=== PATIENT | female | born 1980 | race Caucasian/White ===

== ENCOUNTER → 2018-02-10 08:30 | Outpatient (CLI) | payer OTHER, SELFPAY ==
[2018-02-10 12:16] LABS: ALB/GLOB Ratio 0.8 RATIO (0.9-2.4); AST(SGOT) 15 U/L (15-37); Alanine Aminotransfer ALT/SGPT 14 U/L (13-56); Albumin, Serum 3.3 g/dL (3.2-5.0); Alkaline Phosphatase 90 U/L (45-117); Anion Gap 8 (5-15); BUN 12 mg/dL (7-18); BUN/Creat Ratio 14.3 RATIO (10-20); Calcium,Total 8.7 mg/dL (8.5-10.1); Chloride 105 mmol/L (98-107); Cholesterol 195 mg/dL (200); Creatinine, Serum 0.84 mg/dL (0.55-1.02); EST Glomerular Filtration Rate 81 mL/min (>60); Est Glom Filt Rate - Afr Amer 98 mL/min (>60); Globulin 4.1 g/dL (2.2-4.2); Glucose 81 mg/dL (74-106); High Density Lipoprotein 91 mg/dL; Protein, Total 7.4 g/dL (6.4-8.2); Sodium Level 139 mmol/L (136-145); T4 Free Direct 0.85 ng/dL (0.76-1.46); Thyroid Stim Hormone (TSH) 1.32 uIU/mL (0.358-3.74); Triglycerides 107 mg/dL; Very Low Density Lipoprotein 21 mg/dL (5-40)
[2018-02-11 09:25] LABS: Insulin 13.3 mU/L (2.6-37.6)
[2018-02-11 15:47] LABS: Adrenocorticotropic Hormone 7.1 pg/mL (7.2-63.3)
== END ==
PROVIDERS: Family Provider Family Medicine; PCP Family Medicine; Visit Provider Family Medicine
DX: R63.5 Abnormal weight gain (principal); R53.83 Other fatigue; G43.909 Migraine, unspecified, not intractable, without status migrainosus
CPT/HCPCS: 36415; 80053; 80061; 82024; 82533; 83525; 84439; 84443

== ENCOUNTER → 2018-02-16 08:06 | Outpatient (CLI) | payer OTHER, SELFPAY | PROVIDERS: Family Provider Family Medicine; PCP Family Medicine; Visit Provider Family Medicine | DX: E27.0 Other adrenocortical overactivity (principal) | CPT/HCPCS: 36415; 82533 ==

== ENCOUNTER → 2019-12-15 10:18 | Outpatient (CLI) | payer MEDICAID, SELFPAY ==
[2019-12-15 12:43] LABS: Erythrocyte Sedimentation Rate 23 mm/hr (0-20)
[2019-12-15 12:46] LABS: Absolute Lymphocyte Count 2.65 X10^3/uL (0.83-4.51); Absolute Neutrophil Count 4.4 X10^3/uL (2.0-7.7); Basophil# 0.05 X10^3/uL; Basophil% 0.6 % (0-1); Eosinophil# 0.17 X10^3/uL; Eosinophils% 2.2 % (0-5); Hematocrit 43.4 % (37-47); Hemoglobin 13.9 g/dL (12.0-15.0); Lymphocyte # 2.65 X10^3/ul (4.0); Lymphocyte % 34.3 % (19-41); Mean Corpuscular Hgb 29.3 pg (27.0-32.0); Mean Corpuscular Volume 91.4 fL (81-99); Monocyte# 0.45 X10^3/uL; Monocyte% 5.8 % (0-10); NRBC Flagged by Analyzer 0 % (0-5); Platelet Count 343 K/mm3 (150-450); RBC Distribution Width CV 13.5 % (11.6-14.6); Red Blood Count 4.75 M/mm3 (4.2-5.4); White Blood Count 7.7 K/mm3 (4.4-11.0)
[2019-12-15 12:55] LABS: CRP 9.41 mg/L (0.0-3.0)
[2019-12-16 14:52] LABS: ANTINUCLEAR ANTIBODIES DIRECT Negative (Negative)
[2019-12-16 17:09] LABS: CMV Acute Antibody IgM < 30.0 AU/mL (0.0-29.9); CMV Antibody IgG 0.95 U/mL (0.00-0.59); EBV Acute VCA IgM < 36.0 U/mL (0.0-35.9); EBV Early Antigen IgG <9.0 U/mL (0.0-8.9); EBV Nuclear Antigen IgG 60.3 U/mL (0.0-17.9)
== END ==
PROVIDERS: PCP Family Medicine; Visit Provider Family Medicine
DX: R53.83 Other fatigue (principal); R59.0 Localized enlarged lymph nodes
CPT/HCPCS: 36415; 85025; 85652; 86038; 86140; 86225; 86235; 86644; 86645; 86663; 86664; 86665

== ENCOUNTER → 2019-12-29 10:56 | Outpatient (CLI) | payer MEDICAID, SELFPAY ==
--- NOTE | 2019-12-29 11:05 | MRI_ITS ---
STUDY: MRI BRAIN WITH AND WITHOUT CONTRAST REASON FOR EXAM: Female, 39 years old. MS, INCREASED MIGRAINES, NERVE PAIN TECHNIQUE: Standardized multiplanar fat and water weighted pulse sequences were obtained. IV Dotarem 17ml was administered for the contrast portion of the examination. COMPARISON: None. FINDINGS: Normal size of the ventricles and extra-axial spaces for the patient''s age. There are a limited number of small white matter hyperintensities, distributed throughout the deep white matter tracts of the cerebral hemispheres, nonspecific. Differential considerations include but limited not limited to chronic microvascular, demyelination, Lyme disease and migraine vasculopathy. Normal bilateral basal ganglia. Normal thalami. There is no extra-axial fluid accumulation. Normal flow voids within the major intracranial circulation suggesting patency by spin echo criteria. Normal venous enhancement. There is no enhancing intra-axial or extra-axial abnormality. Normal sella turcica, pituitary gland, infundibular stalk, optic chiasm and hypothalamus. Normal tectal plate and pineal gland. Normal midbrain, kang and medulla. Normal cerebellum. Normal basal cisterns. Normal bilateral temporal bones. MRI/Brain W/WO Contrast IMPRESSION: No acute intracranial abnormality or masses. Nonspecific minimal white matter hyperintensities. Electronically Signed: Perico Andrews MD at 10:31 EST Tel , Service support ,
== END ==
PROVIDERS: PCP Family Medicine; Referring Provider Family Medicine; Visit Provider Family Medicine
DX: H53.2 Diplopia (principal); R53.83 Other fatigue; M62.838 Other muscle spasm; R35.0 Frequency of micturition; M79.2 Neuralgia and neuritis, unspecified
CPT/HCPCS: 70553; A9575

== ENCOUNTER → 2020-01-12 08:10 | Outpatient (CLI) | payer MEDICAID, SELFPAY | PROVIDERS: PCP Family Medicine; Visit Provider Family Medicine | DX: R53.83 Other fatigue (principal); A69.20 Lyme disease, unspecified; R59.0 Localized enlarged lymph nodes | CPT/HCPCS: 36415 ==

== ENCOUNTER 2020-01-29 15:52 | Emergency (ER) | payer MEDICAID, SELFPAY ==
[2020-01-29 15:53] VITALS: BP 156/96; PULSE 83; PULSE 91; RESP 17; TEMP 36.1; O2SAT 98; BMI 34.6
--- NOTE | 2020-01-29 16:09 | ED.VISSUMM ---
- ER Visit Summary Date of Service: 01/29/20 Chief Complaint: Right arm pain History of Present Illness: The patient is a 39 F who has right arm pain. Is been ongoing for 2 weeks. She noticed some red streaks on her proximal forearm. Nothing really makes his pain better or worse. She denies fevers. No history of DVT. She had an MRI with contrast on December 29 and was concerned about the contrast going through but the symptoms did not start until 2 weeks after this. Physical Examination: Vital signs are reviewed. Right arm exam reveals some tenderness on the proximal forearm on the ulnar side right over the vein. No swelling. Distal pulses are 2+ and equal. Her arm is warm. No cyanosis. Test Results: None performed Emergency Department Course and Treatment: I feel that this is likely consistent with a superficial thrombophlebitis. I will place the patient on Keflex for this. She will do warm compresses. I will write her for an outpatient ultrasound to be done tomorrow as they are not here currently. Treatment Plan: [] Disposition: Discharge Impression: Superficial thrombophlebitis This note was generated with [email or web address] dictation software. It may contain incorrect words, spelling, and punctuation that were not noted in review of the chart prior to signing ED Disposition - Plan for ED Patient: Disposition: Home or Assisted Living Instructions: THROMBOPHLEBITIS, Superficial Prescriptions: Cephalexin [Keflex] 500 mg PO Q12 #10 cap Transmission Status: Pending to [facility]/pharmacy #[id number] Referrals: Misbah Shaw DO [Primary Care Provider] -
[2020-01-29] MEDS: Cephalexin 250 MG Capsule 500 MG PO (16:19)
== END 2020-01-29 16:20 | disposition home or self-care (01) ==
PROVIDERS: Emergency Provider Emergency Medicine; PCP Family Medicine
DX: I80.8 Phlebitis and thrombophlebitis of other sites (principal)
CPT/HCPCS: 99283

== ENCOUNTER → 2020-01-30 11:20 | Outpatient (CLI) | payer MEDICAID, SELFPAY ==
[2020-01-29 15:53] VITALS: BMI 34.6
--- NOTE | 2020-01-30 11:42 | VDUE_ITS ---
Reason For Study: Pain Right Proximal Right jugular vein is spontaneous, widely patent, phasic, with no intraluminal echogenicity noted. Right subclavian vein is spontaneous, widely patent, phasic, with no intraluminal echogenicity noted. Right Lower Arm Right radial vein is compressible. Right ulnar vein is compressible. Right Arm Right axillary vein is spontaneous, patent, phasic, competent, compressible and demonstrates augmentation. Right brachial vein is compressible. Right cephalic vein is compressible. Acute superficial vein thrombosis is noted in the right basilic vein from mid forearm to juction with axillary vein, not extending in to axillary vein. Acute superficial vein thrombosis is notedin the median cubital vein, not extending in the cephalic vein. Patient Safety Pt seen in ED 01/29/2020, took pt back down to ED for treatment on 01/30/2020. Interpretation Summary Deep veins of the right upper extremity are patent and compressible segmentally. There is no evidence of deep vein thrombosis. Acute superficial thrombophlebitis is noted in the right basilic vein from the mid-forearm to its junction with the axillary vein, but not extending into the axillary vein. Acute superficial thrombophlebitis is also noted in the right median cubital vein. The right cephalic vein is patent and compressible. Ordering Physician: Reji Jeong Referring Physician: Misbah Shaw Performed By: Renu Goodman RVT ?
== END ==
PROVIDERS: PCP Family Medicine; Visit Provider Emergency Medicine
DX: M79.601 Pain in right arm (principal)
CPT/HCPCS: 93971

== ENCOUNTER 2020-01-30 12:00 | Emergency (ER) | payer MEDICAID, SELFPAY ==
[2020-01-29 15:53] VITALS: BMI 34.6
[2020-01-30 12:01] VITALS: BP 151/96; PULSE 90; RESP 18; TEMP 36.6; O2SAT 98; BMI 34.3
--- NOTE | 2020-01-30 12:11 | ED.VIS.GEN ---
History of Present Illness Chief Complaint: Upper Extremity Injury Detail of Chief Complaint: Venous duplex reveals superficial phlebitis median cubital vein and not ext Informant: Patient Onset: Days Context: Sudden Onset Timing: Continuous Quality: Pain Location: Dorsal ulnar mid to proximal right forearm Current Severity: Mild Maximum Severity: Moderate Worsened by: Pressure Relieved by: Rest Associated Symptoms: None Narrative: Records from yesterday were read and reviewed. Patient presents from vascular lab and revealed a superficial clot. Patient's IV site was right antecubital fossa. She denies fever, chills night sweats. She denies chest pain or shortness of breath. She denies arm pain. She complains of pain and the proximal ulnar right forearm only. Prior similar symptoms: Yes Recent Illness/Hospitalization: Yes - Past Medical History (1) No significant past medical history Status: Acute Past Medical History - Allergies and Home Meds Allergies/Adverse Reactions: Allergies Penicillins Allergy (Verified 01/30/20 12:04) Unknown Sulfa (Sulfonamide Antibiotics) Allergy (Verified 01/30/20 12:04) Rash Primary Care Physician: Misbah Shaw DO [Primary Care Provider] - Prior records reviewed: Yes Surgical History: noncontributory Lives: Alone Smoking Status: Former smoker Drugs: None Review of Systems General: Denies: Chills, Fever, Malaise, Subjective, Sweats, Weight loss Neurological: Denies: Weakness, Parasthesia, Numbness Hematologic: Denies: Easy bruising, Easy bleeding Allergy: Denies: Uticaria, Swelling of the mouth, Swelling of the tongue Physical Exam Vital Signs/Narrative: Vital Signs Temp Pulse Resp BP Pulse Ox 01/30/20 12:01 97.9 F 90 18 151/96 H 98 Inital Vital Signs reviewed: Yes General: Well nourished, Well developed, Obese, No Acute Distress Head: Normocephalic, Atraumatic Eyes: Perrl, EOMI. Negative for: Pale conjunctiva, Scleral icterus Cardiovascular: Regular rate, Regular rhythm Respiratory: No distress Extremities: No edema, Tenderness, - - There is tenderness along the ulnar proximal right forearm. There is a palpable cord consistent with superficial Vitas. This was confirmed by venous duplex study performed earlier this morning. There is no epitrochlear axillary lymphadenopathy. There is no induration, lymphangitis. Negative for: Nontender Skin: Normal color, No rash Neurological: Alert, Oriented x3, Cranial nerves II-XII grossly intact, Normal Strength, Normal Sensation Psychological: Normal affect, Normal Mood Diagnostic/Tx/Re-eval - Medical Decision Making Patient presents with venous duplex study that reveals a superficial phlebitis. There is no evidence or concern for infection. Will discharge with appropriate home-going instructions. ED Disposition - Plan for ED Patient: Disposition: Home or Assisted Living Diagnosis: Superficial thrombophlebitis of right upper extremity Instructions: THROMBOPHLEBITIS, Superficial Referrals: Misbah Shaw DO [Primary Care Provider] - 10-14 Days if not better
== END 2020-01-30 12:26 | disposition home or self-care (01) ==
PROVIDERS: Emergency Provider Emergency Medicine; PCP Family Medicine
DX: I80.8 Phlebitis and thrombophlebitis of other sites (principal); E66.9 Obesity, unspecified; Z87.891 Personal history of nicotine dependence
CPT/HCPCS: 93971; 99282

== ENCOUNTER → 2022-04-22 | Outpatient (CLI) | payer BC, MEDICAID, SELFPAY ==
--- NOTE | 2022-04-22 | EMB_PTH ---
PATIENT: KAITLIN OVERTON LOC: [facility] U#:[id number] AGE/SX: 42/F ROOM: RE04/22/[address]: JUSTIN Ahn : 1980 BED: DIS: 04/22/2022 SPEC #: [id number] RECD: 04/22/22 16:24 STATUS: MAGDA GARCIA #: [id number] MAMIE: 04/22/22 00:[address]: Mari Thurston NP DEPT: SURGICAL PATHOLOGY RECD BY: Kina Wells ENTERED: 04/23/22 11:53 SP TYPE: ENDOM BX/C CONCHITA DR: Dr. Misbah Shaw DO Tissues: Endometrium, NOS Procedures: Surgery Specimen Level IV HEADER OPERATION: Endometrial biopsy PRE-OP DIAGNOSIS: Abnormal uterine bleeding TISSUE SUBMITTED: Endometrial biopsy MICROSCOPIC DIAGNOSIS Endometrial biopsy: Proliferative endometrium. SJ:fanta 04/24/2022 MICROSCOPIC DESCRIPTION Slides are reviewed. GROSS DESCRIPTION Received is one container labeled with the patient's name and not further designated. The specimen consists of multiple fragments of carolina-pink hemorrhagic soft tissue mixed with mucoid tissue that in aggregate measure 2.5 x 0.5 x 0.1 cm. The specimen is totally submitted in one cassette. / SJ:rg 04/23/2022 TC:4 CPT: 91815
[2022-04-25 17:23] LABS: HPV APTIMA, High Risk Negative (Negative)
== END | disposition home or self-care (01) ==
LOC: LABSPEC 16:28
PROVIDERS: PCP Family Medicine; Referring Provider Nurse Practitioner Women's Health; Visit Provider Nurse Practitioner Women's Health
DX: N93.9 Abnormal uterine and vaginal bleeding, unspecified (principal)
CPT/HCPCS: 87624; 88175; 88305; G0145

== ENCOUNTER → 2022-05-06 | Outpatient (CLI) | payer BC, SELFPAY ==
--- NOTE | 2022-05-06 08:20 | BI_ITS ---
MAMMOGRAPHY - BILATERAL SCREENING REASON FOR EXAM: Female, 42 years old. Routine annual screening examination. PERTINENT HISTORY: Non-contributory. TECHNIQUE: Digital bilateral breast fatemeh (3D mammographic acquisition) in the CC and MLO projections. 2-D mediolateral oblique (MLO) and craniocaudad (CC) views of both breasts were obtained. CAD: Full Field Digital Mammography with Computer Added Detection was performed. COMPARISON: None. Baseline examination. FINDINGS: Breast Composition: There are scattered areas of fibroglandular density. There are no dominant masses or suspicious calcifications. Small benign-appearing bilateral axillary lymph nodes. No other significant abnormalities are identified. BI/SCRN MAMM (CAD)W/FATEMEH BILAT IMPRESSION: Negative screening mammogram. Yearly followup mammogram recommended. (A) ASSESSMENT CATEGORY: BIRADS Category 2: Benign. A letter regarding these results will be sent to the patient by the facility within 30 days. Approximately 10% of breast cancers are not detected by mammography. A normal mammogram should not delay biopsy of a clinically suspicious abnormality. [id number] Electronically Signed: Tristin Ortega MD at 9:08 EDT ,
== END | disposition home or self-care (01) ==
LOC: OPBI 08:19
PROVIDERS: PCP Family Medicine; Visit Provider Nurse Practitioner Women's Health
DX: Z12.31 Encounter for screening mammogram for malignant neoplasm of breast (principal)
CPT/HCPCS: 77063; 77067

== ENCOUNTER → 2022-05-20 | Outpatient (CLI) | payer BC, MEDICAID, SELFPAY ==
--- NOTE | 2022-05-20 10:47 | US_ITS ---
STUDY: ULTRASOUND OF THE FEMALE PELVIS - COMPLETE REASON FOR EXAM: Female, 42 years old. AUB LMP: 03/12/2022. TECHNIQUE: Transabdominal and Transvaginal TECHNICAL QUALITY: Adequate. COMPARISON: None. FINDINGS: The uterus is anteverted and is in a midline position. The uterus measures 8.9 cm x 5.3 cm x 4 cm. There is a Nabothian cyst of the cervix. The endometrium measures 8.8 mm in thickness, and is hyperechoic. A small cystic structure is seen adjacent to the endometrium. This may represent adenomyosis. There is no demonstrated myometrial mass. I.U.D. - The patient does not have an I.U.D. The right ovary is visualized. The right ovary measures 2.1 cm x 2 cm x 1.2 cm. There is no right ovarian cyst or ovarian mass. There is no visualized right adnexal mass or complex lesion. There is normal arterial and normal venous vascularity. The left ovary is visualized. The left ovary measures 1.7 cm x 1.5 cm x 2 cm. There is no left ovarian cyst or ovarian mass. There is no visualized left adnexal mass or complex lesion. There is normal arterial and normal venous vascularity. There is no fluid in the cul-de-sac. The pre void volume of the bladder was 670 ml. US/Transvaginal Non- IMPRESSION: Small cystic changes deep in the endometrium. This may represent adenomyosis. Electronically Signed: Tristin Ortega MD at 15:46 EDT ,
--- NOTE | 2022-05-20 10:47 | US_ITS ---
STUDY: ULTRASOUND OF THE FEMALE PELVIS - COMPLETE REASON FOR EXAM: Female, 42 years old. AUB LMP: 03/12/2022. TECHNIQUE: Transabdominal and Transvaginal TECHNICAL QUALITY: Adequate. COMPARISON: None. FINDINGS: The uterus is anteverted and is in a midline position. The uterus measures 8.9 cm x 5.3 cm x 4 cm. There is a Nabothian cyst of the cervix. The endometrium measures 8.8 mm in thickness, and is hyperechoic. A small cystic structure is seen adjacent to the endometrium. This may represent adenomyosis. There is no demonstrated myometrial mass. I.U.D. - The patient does not have an I.U.D. The right ovary is visualized. The right ovary measures 2.1 cm x 2 cm x 1.2 cm. There is no right ovarian cyst or ovarian mass. There is no visualized right adnexal mass or complex lesion. There is normal arterial and normal venous vascularity. The left ovary is visualized. The left ovary measures 1.7 cm x 1.5 cm x 2 cm. There is no left ovarian cyst or ovarian mass. There is no visualized left adnexal mass or complex lesion. There is normal arterial and normal venous vascularity. There is no fluid in the cul-de-sac. The pre void volume of the bladder was 670 ml. US/Pelvic (Non ) IMPRESSION: Small cystic changes deep in the endometrium. This may represent adenomyosis. Electronically Signed: Tristin Ortega MD at 15:46 EDT ,
== END | disposition home or self-care (01) ==
LOC: OPUS 10:30 → US 10:47
PROVIDERS: PCP Family Medicine; Referring Provider Nurse Practitioner Women's Health; Visit Provider Nurse Practitioner Women's Health
DX: N93.9 Abnormal uterine and vaginal bleeding, unspecified (principal)
CPT/HCPCS: 76830; 76856

== ENCOUNTER 2022-06-11 08:52 | Day surgery (SDC) | payer BC, MEDICAID, SELFPAY ==
[2022-06-07 13:02] LABS: Hematocrit 43.5 % (37-47); Hemoglobin 14.5 g/dL (12.0-15.0); Mean Corp Hgb Conc 33.3 g/dL (32-36); Mean Corpuscular Hgb 30.3 pg (27.0-32.0); Mean Corpuscular Volume 90.8 fL (81-99); Mean Platelet Vol. 10.1 fl (6.2-12.0); Platelet Count 260 K/mm3 (150-450); RBC Distribution Width CV 13.2 % (11.6-14.6); RBC Distribution Width SD 44.4 fl (35.1-43.9); Red Blood Count 4.79 M/mm3 (4.2-5.4); White Blood Count 9.8 K/mm3 (4.4-11.0)
--- NOTE | 2022-06-10 10:55 | PCM.HP.BLA ---
History and Physical Date of Admission: 06/11/22 [facility] [address] [place], [place] [address] OFFICE VISIT Date of Service:? 05/30/22 MR#: [id number] Acct: [id number] Name:KAITLIN ROSADO Rep #: [id number] : 1980 ? ? Provider: Dr. Gabriela Alicea, DO Age/Sex:? 42/F ? ? Location: [facility] [place] Status: Signed Intake Vital Signs ? 05/30/2214:25 05/30/2214:28 Height 5 ft 3 in 5 ft 3 in Weight: 187 lb ? BMI 33.1 ? BP 122/80 H ? Intake Visit Reasons:?D&C Allergies Penicillins Allergy (Verified 05/30/22 14:24) UnknownSulfa (Sulfonamide Antibiotics) Allergy (Verified 05/30/22 14:24) Rash Medications sertraline 100 mg tablet (Zoloft) 100 mg PO QDAY 05/12/18 [History Confirmed 05/30/22] Is last menstrual period known: Yes Last Menstral Period: 03/11/22 Nurse's Note: pt has had abdominal discomfort since [facility] Medical History? Anxiety Lyme disease Surgical History? Bunion Dermoid cyst Social History? adopted:? Yes household members:? family housing:? house number of children:? 1 current occupational status:? 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 No pets and animals:? Yes Smoking Status:? Former smoker second hand exposure:? No alcohol intake:? never substance use type:? does not use seatbelt use:? always do you feel safe at home:? Yes additional social history:? Boyfriend- Isacc [facility] D&C Details: KAITLIN OVERTON is a 42 year old (Vaginal delivery) who presents for discussion about surgery. ultrasound shows an 8.9 x 5 x 4 cm uterus and a small cystic area in the myometrium consistent with adenomyosis. This was initially thought by Mari Thurston as an endometrial polyp. Upon closer look of the images, it appears to be within the muscle. The patient has complaints of generalized uterine cramping, which is consistent with adenomyosis. She has shortening of the intervals of her cycles more recently. She also states that she is not interested in child bearing and would be more interested in a hysterectomy. Female Reproductive History Last Menstral Period: 03/11/22 Pregancy History ? ? ? 1 ? Elective abortions ? Hx Para ? ? ? 1 ? Spontaneous abortions ? Hx # Term Pregnancies ? Ectopic pregnancies ? Hx # Pregnancies ? Multiple births ? # of living children ? ? ? 1 Past Pregnancies Del. Date Name GA/Weeks Outcome Route Bth Weight Infant Gen Labor Lgth Anesthesia Del Locatn Provider FOB 04/02/06 Beth ? ROS Const ROS Unobtainable: All systems reviewed & are unremarkable except as noted in H Resp Resp: Reports system reviewed and no additional complaints, except as documented; Denies cough GI GI: Reports as per HPI Psych Psych: Reports system reviewed and no additional complaints, except as documented Exam Const General: cooperative, healthy appearing, comfortable and no acute distress Resp Effort & Inspection: normal respiratory effort Skin General: no rashes or lesions noted Psych Appearance: grossly normal Speech and Movement: speech and movement normal Coding Level of Care Code Off vis,est,level 5 Diagnoses Adenomyosis? N80.0 Abnormal uterine bleeding (AUB)? N93.9 Climacteric? N95.1 Assessment and Plan Assessment and Plan (1) Adenomyosis: ?Status:?Acute (2) Abnormal uterine bleeding (AUB): ?Status:?Acute ?Comment: EMB, US (3) Climacteric: ?Status:?Acute Plan After discussing the patient's diagnosis and treatment plan options, patient wishes to proceed with surgical management. She has decided to proceed with a total vaginal hysterectomy. ? I have discussed with the patient the risks, benefits, and alternatives of the procedure which include but are not limited to risks of anesthesia, bleeding, infection, possible damage to bowel, bladder, or surrounding vasculature which could lead to additional surgery to evaluate any complications.? Patient agrees to procedure and wishes to proceed.? ACOG/uptodate references given for additional information regarding procedure.? UPDATE- I have seen the patient and performed any clinically relevant updates to the history and physical exam. Gabriela Alicea, DO
[2022-06-11] VITALS (9 sets, daily range): BP systolic 120–135; BP diastolic 66–86; PULSE 68–93; RESP 12–18; TEMP 36.3–36.4; O2SAT 16–100; BMI 32.9
--- NOTE | 2022-06-11 | HYST_PTH ---
PATIENT: KAITLIN OVERTON LOC: [facility] [place] U#:[id number] AGE/SX: 42/F ROOM: RE06/11/[address]: Dr. Gabriela Alicea DO : 1980 BED: DIS: 06/11/2022 SPEC #: [id number] RECD: 06/11/22 13:34 STATUS: MAGDA GARCIA #: [id number] MAMIE: 06/11/22 00:[address]: Gabriela Alicea DEPT: SURGICAL PATHOLOGY RECD BY: Thomas Brooke ENTERED: 06/11/22 13:34 SP TYPE: HYSTERECT OTHR DR: Dr. Misbah Shaw, DO Tissues: Uterus, NOS Procedures: Surgery Specimen Level V HEADER OPERATION: ERAS, vaginal hysterectomy PRE-OP DIAGNOSIS: Adenomyosis, abnormal uterine bleeding TISSUE SUBMITTED: Cervix and uterus MICROSCOPIC DIAGNOSIS Uterus, hysterectomy: Cervix ? nabothian cysts and mild chronic inflammation. Endometrium ? simple cystic hyperplasia without atypia. Myometrium ? adenomyosis. AM:fanta 06/12/2022 MICROSCOPIC DESCRIPTION Slides are reviewed. GROSS DESCRIPTION Received in fixative is one container labeled with the patient's name and designated cervix and uterus. The specimen consists of a hysterectomy specimen consisting of uterus with cervix weighing 120 gm and?measuring 10 x 6 x 4.5 cm. The serosal surface is carolina, glistening. The ectocervical mucosa is unremarkable. The external os is oval and patulous in contour. The endocervical canal measures 3.5 cm in length. The endocervical mucosa is carolina, glistening and unremarkable. The triangular endometrial cavity measures 4 cm in length and up to 2.5 cm in width. The endometrium is carolina, glistening without any mass lesion and measures up to 0.2 cm in thickness. The uterine wall reveals focally trabeculated cut surfaces and punctate hemorrhage suspicious for adenomyosis. No mass lesion is identified. The uterine wall measures up to 3 cm in thickness. Shut Off Worker sections are submitted in six cassettes as follows: 1 - anterior cervix, 2 - posterior cervix, 3 & 4 - anterior uterine wall, 5 & 6 - posterior uterine wall. / SJ:fanta 06/11/2022 TC:5 CPT: 47455
[2022-06-11 09:15] LABS: Internal QC Validated? YES +Cl - CLEAR BKGD; Pregnancy, Urine Negative Negative
[2022-06-11] MEDS: Lactated Ringers 1,000 ML 40 ML IV ×2 (09:17→13:09)
[2022-06-11] MEDS: Celecoxib 200 MG Capsule 400 MG PO (09:18)
[2022-06-11] MEDS: Acetaminophen 500 MG Tablet 1000 MG PO (09:18)
[2022-06-11] MEDS: Gabapentin 600 MG Tablet PO (09:18)
[2022-06-11 10:00] LABS: Bedside Glucose 90 mg/dL (74-106)
--- NOTE | 2022-06-11 10:32 | DCINST_ITS ---
Discharge Instructions Diet Discharge Diet: No restrictions Activity Discharge Activity: Return to Normal Activity, May Not Drive (while taking narcotic pain medications.) and May Shower May resume sexual activity in: 6-8 weeks Dressing / Incision Call your doctor if your incision/area has: Continuous Slow Oozing, Sudden Increased Bleeding, Increased Pain/ Swelling, Increased Redness and Foul Smelling Discharge Call your doctor if you observe: Fever of 101 or Higher, Inability to urinate, Inability to have a bowel movement and Using more than 1 pad per hour Follow Up Care Please Follow Up With: Gabriela Alicea DO Test Results: Test results from this visit will be discussed in further detail at your follow- up appointment, if applicable. Discharge Plan Admission Primary Reason for Your Visit: hysterectomy Attending Provider: Gabriela Alicea Primary Care Provider: Misbah Shaw Discharge Orders/Prescriptions Prescriptions: New ibuprofen 600 mg tablet 600 mg PO Q6H PRN (Reason: pain) 7 Days Qty: 28 0RF Rx Instructions: one tab every 6 hrs as needed for mild to moderate pain oxycodone-acetaminophen [Percocet] 5-325 mg tablet 1 tab PO Q4H PRN (Reason: pain) 7 Days Qty: 30 0RF Continued sertraline [Zoloft] 100 mg tablet 100 mg PO QDAY Referrals / Follow Up: Misbah Shaw DO [Primary Care Provider] - Disposition Disposition (needs filled in before D/C Order can be placed): Home, Self Care
[2022-06-11] MEDS: Cefazolin 2 GM in 0.9% Normal Saline 100 ML IV (11:51)
[2022-06-11] MEDS: Lidocaine 1% /Epi 1:100 (20ml) 20 ML Vial (11:55)
--- NOTE | 2022-06-11 13:00 | OP.PCM_ITS ---
Operative Report Date of Procedure: 06/11/22 Pre-operative diagnosis: menorrhagia, adenomyosis on ultrasound Post-operative diagnosis: menorrhagia, adenomyosis on ultrasound Surgeon: Dr. Gabriela Alicea DO Senior Mechanical Engineer: DIANA Damico surgery: Total vaginal hysterectomy EBL: 150cc urine output: 800cc Anesthesia: General endotracheal details of the procedure: Patient was taken to the operating room and was placed under general anesthesia was prepped and draped in normal sterile fashion in the dorsal lithotomy posit ion. Preoperative antibiotics and SCDs and Fisher catheter was placed inside the bladder. Weighted speculum was placed in the vagina and the anterior and posterior lip of the cervix was grasped with 2 Lyric clamps and circumferentially injected with dilute vasopressin. A circumferential incision was made with a scalpel and the posterior cul-de-sac was entered into sharply and a longneck speculum was placed. The anterior cul-de-sac was also dissected down and entered into sharply and the uterosacral ligaments were clamped cut and suture ligated bilaterally followed by the cardinal ligaments which were Clamped cut and suture ligated bilaterally with 0 vicryl. The uterus serially descended and progressive bites were taken bilaterally up to the level of the utero- ovarian ligament bilaterally which was clamped transected and double ligated with Vicryl free tie. Excellent hemostasis was noted. Posterior peritoneum was reapproximated with 2-0 Vicryl and a modified Clark stitch was placed through the posterior vaginal cuff and bilateral uterosacral ligaments across the posterior cul-de-sac skimming along to provide apical support to the vagina. The vagina was closed with [id number] 0 Vicryl pop offs including the posterior and anterior peritoneum in the reapproximation. Excellent hemostasis was noted. All instruments removed from the vagina clear urine was noted at the end of the procedure and patient was awoken and taken recovery in stable condition. Multi Select Codes Urinary/Genital Urinary/Genital CPT Codes: 46528 TVH <250 gr uterus
[2022-06-11 13:41] LABS: Bedside Glucose 86 mg/dL (74-106)
[2022-06-11] MEDS: Ondansetron 4 MG/2 ML Vial IM (14:09)
[2022-06-11] MEDS: HYDROcodone Bitartrate/Apap 5/325 Tablet PO (14:22)
[2022-06-11] MEDS: Morphine 4 MG/ML Syringe IV (15:47)
== END 2022-06-11 17:14 | disposition home or self-care (01) ==
LOC: SDC 08:53 → AC 08:53
PROVIDERS: Anesthesiology; PCP Family Medicine; Referring Provider Obstetrics & Gynecology; Visit Provider Obstetrics & Gynecology
PROC: (CPT 58260; principal; 2022-06-11 10:10)
DX: N85.01 Benign endometrial hyperplasia (principal); F41.9 Anxiety disorder, unspecified; A69.20 Lyme disease, unspecified; Z87.891 Personal history of nicotine dependence; Z79.899 Other long term (current) drug therapy
CPT/HCPCS: 58260; 00944; 36415; 81025; 82962; 83735; 85027; 86850; 86900; 86901; 88307; J7120; J2405; J3475

== ENCOUNTER → 2024-01-26 | Outpatient (CLI) | payer BC, MEDICAID, SELFPAY ==
[2024-01-26 09:49] LABS: Absolute Lymphocyte Count 2.63 X10^3/uL (0.83-4.51); Absolute Neutrophil Count 4.6 X10^3/uL (2.0-7.7); Basophil# 0.06 X10^3/uL; Basophil% 0.8 % (0-1); Eosinophil# 0.09 X10^3/uL; Eosinophils% 1.2 % (0-5); Hematocrit 43.3 % (37-47); Hemoglobin 14.1 g/dL (12.0-15.0); Lymphocyte # 2.63 X10^3/ul (0.83-4.51); Lymphocyte % 33.7 % (19-41); Mean Corp Hgb Conc 32.6 g/dL (32-36); Mean Corpuscular Volume 89.1 fL (81-99); Mean Platelet Vol. 9.7 fl (6.2-12.0); Monocyte# 0.41 X10^3/uL; Monocyte% 5.3 % (0-10); NRBC Flagged by Analyzer 0 % (0-5); Neutrophil # 4.58 X10^3/uL (2.7-7.7); Neutrophil % 58.6 % (47-70); Platelet Count 235 K/mm3 (150-450); RBC Distribution Width CV 13.3 % (11.6-14.6); RBC Distribution Width SD 43.5 fl (35.1-43.9); Red Blood Count 4.86 M/mm3 (4.2-5.4); White Blood Count 7.8 K/mm3 (4.4-11.0)
[2024-01-26 10:27] LABS: ALB/GLOB Ratio 0.9 RATIO (0.9-2.4); AST(SGOT) 20 U/L (15-37); Alanine Aminotransfer ALT/SGPT 20 U/L (13-56); Albumin, Serum 3.7 g/dL (3.2-5.0); Alkaline Phosphatase 112 U/L (45-117); Anion Gap 5 (5-15); BUN 11 mg/dL (7-18); BUN/Creat Ratio 12.2 RATIO (10-20); Calcium,Total 9.3 mg/dL (8.5-10.1); Chloride 108 mmol/L (98-107); Cholesterol 199 mg/dL (200); EST Glomerular Filtration Rate 72 mL/min (>60); Est Glom Filt Rate - Afr Amer 87 mL/min (>60); Globulin 3.9 g/dL (2.2-4.2); Glucose 93 mg/dL (74-106); High Density Lipoprotein 67 mg/dL; Potassium 3.9 mmol/L (3.5-5.1); Protein, Total 7.6 g/dL (6.4-8.2); Sodium Level 140 mmol/L (136-145); Triglycerides 79 mg/dL; Very Low Density Lipoprotein 16 mg/dL (5-40)
== END | disposition home or self-care (01) ==
PROVIDERS: PCP Family Medicine; Visit Provider Family Medicine
DX: Z00.00 Encounter for general adult medical examination without abnormal findings (principal)
CPT/HCPCS: 36415; 80053; 80061; 84443; 85025